=== PATIENT | male | born 1945 | race Hispanic/Latino ===

== ENCOUNTER 2019-02-16 15:58 | Emergency (ER) | payer MEDICARE, MEDICAID ==
[2019-02-16 15:58] VITALS: BMI 26.6
[2019-02-16 17:41] LABS: BASO # 0.02 K/mm3 (0.0-2.0); BASO % 0.2 % (0.0-3.0); EOS # 0.3 (0.0-0.7); EOS % 3.1 % (1.5-5.0); HEMOGLOBIN 13.2 g/dL (14.0-18.0); LYMPH # 4.4 (1.2-3.4); LYMPH % 54.5 % (22.0-35.0); MEAN CELL VOLUME 91.8 fl (80.0-105.0); MEAN CORPUSCULAR HEMOGLOBIN 30.8 pg (25.0-35.0); MEAN CORPUSCULAR HGB CONC 33.5 g/dl (31.0-37.0); MONO % 12.1 % (1.0-6.0); RBC 4.29 10^6/uL (3.5-6.1); RED CELL DISTRIBUTION WIDTH 13.5 % (11.5-14.5)
--- NOTE | 2019-02-16 17:55 | ED PDOC ---
Arrival/HPI - General Chief Complaint: Psychiatric Evaluation Time Seen by Provider: 02/16/19 16:04 - History of Present Illness Narrative History of Present Illness (Text): 02/16/19 17:51 73 m with hx intellectual disability, parkinson's syndrome presents from custodial for evaluation of usual aggressive behavior. Patient was reported to be physically combative to other residents. Patient is unable to provide any reliable history. more detailed hx provided by dr. lin Past Medical History - Infectious Disease Hx of Infectious Diseases: None - Cardiac Other/Comment: unspecified intlectual disabilities - Pulmonary Hx Asthma: Yes - Neurological Hx Dementia: Yes Hx Parkinson's Disease: Yes Hx Seizures: Yes - HEENT Hx Glaucoma: Yes (unspecified glaucoma) - Hematological/Oncological Hx Blood Disorders: Yes Hx Hepatitis B: Yes - Integumentary Hx Dermatological Disorder: Yes Hx Eczema: Yes - Genitourinary/Gynecological Hx Urinary Tract Infection: Yes - Psychiatric Hx Anxiety: Yes Hx Substance Use: No - Anesthesia Hx Anesthesia: No Family/Social History Family/Social History: Unknown Family HX Smoking Status: Never Smoked Hx Alcohol Use: No Hx Substance Use: No Allergies/Home Meds Allergies/Adverse Reactions: Allergies poison karthik extract Allergy (Verified 08/07/18 17:46) Home Medications: Home Meds Medication Instructions Recorded Confirmed ARIPiprazole [Abilify] 2 mg PO DAILY 08/07/18 08/07/18 Aspirin [Aspirin EC] 325 mg PO DAILY 08/07/18 08/07/18 Carbidopa/Levodopa 1 each PO TID 08/07/18 08/07/18 [Carbidopa-Levodopa 25-100 Tab] Clonazepam 0.5 mg PO BID 08/07/18 08/07/18 Divalproex Sodium [Divalproex 500 mg PO DAILY 08/07/18 08/07/18 Sodium ER] Folic Acid 0.4 mg PO DAILY 08/07/18 08/07/18 Lovastatin 20 mg PO DAILY 08/07/18 08/07/18 Multivitamin [Multivitamins] 1 each PO DAILY 08/07/18 08/07/18 Topiramate 50 mg PO DAILY 08/07/18 08/07/18 Review of Systems - Review of Systems Systems not reviewed;Unavailable: Other (unable to fully review due to intellectual disabilty) Physical Exam - Physical Exam Narrative Physical Exam (Text): 02/16/19 17:55 Gen: VS reviewed, alert, well developed, well nourished, nontoxic, mild dist ress Eye: EOMI, PERRL Neck: no JVD, supple, no adenopathy CV: regular rate, regular rhythm, no rubs,no murmur, S1, S2 Pulm: no distress, clear to auscultation, no wheeze, no rhonchi, breath sounds e qual, no rales Abd: soft, nontender, no guarding, no rebound, no rigidity Ext: no edema Skin: good color, no rash, no cyanosis Neuro: oriented x3, CN2-12 intact grossly, motor intact, sensation intact 02/16/19 17:56 02/16/19 18:04 Vital Signs Temp Pulse Resp BP Pulse Ox 02/16/19 16:08 97.5 F L 86 18 143/96 H 98 Medical Decision Making ED Course and Treatment: 02/16/19 17:54 patient seen for aggressive behavior while at custodial. will workup for infectious process. patient is calm thus far during his stay in the ED. - RAD Interpretation Radiology Orders: 02/16/19 17:09 CHEST ONE VIEW [RAD] Stat Disposition/Present on Arrival - Present on Arrival Any Indicators Present on Arrival: No History of DVT/PE: No History of Uncontrolled Diabetes: No Urinary Catheter: No History of Decub. Ulcer: No History Surgical Site Infection Following: None - Disposition Have Diagnosis and Disposition been Completed?: Yes Diagnosis: Aggressive behavior Disposition Time: 18:04 Forms: [employer] (Thai)
[2019-02-16 17:59] LABS: ACETAMINOPHEN < 10.0 ug/ml (10.0-20.0); SALICYLATE < 1 mg/dL (2.0-20.0)
[2019-02-16 18:00] LABS: ALB/GLOB RATIO 1.1 (1.1-1.8); ALBUMIN 3.9 g/dL (3.0-4.8); ALT/SGPT < 6 U/L (7-56); AST/SGOT 29 U/L (17-59); BLOOD UREA NITROGEN 21 mg/dL (7-21); CALCIUM 9.4 mg/dL (8.4-10.5); GFR NON-AFRICAN AMERICAN > 60
[2019-02-16 18:15] LABS: URINE BILIRUBIN NEGATIVE (NEGATIVE); URINE BLOOD NEGATIVE (NEGATIVE); URINE GLUCOSE (UA) NEGATIVE (NEGATIVE); URINE LEUKOCYTE ESTERASE NEGATIVE Leu/uL (NEGATIVE); URINE PROTEIN NEGATIVE mg/dL (<30 mg/dL); URINE UROBILINOGEN 0.2 E.U./dL (<1 E.U./dL)
[2019-02-16 18:17] LABS: URINE APPEARANCE CLEAR (CLEAR); URINE COLOR YELLOW (YELLOW)
--- NOTE | 2019-02-16 18:42 | RAD ---
Date of service: 02/16/2019 PROCEDURE: CHEST RADIOGRAPH, 1 VIEW HISTORY: medical screening COMPARISON: 01/10/2014. FINDINGS: LUNGS: Clear. PLEURA: No pneumothorax or pleural fluid seen. CARDIOVASCULAR: No aortic atherosclerotic calcification present. Normal. OSSEOUS STRUCTURES: No significant abnormalities. VISUALIZED UPPER ABDOMEN: Normal. OTHER FINDINGS: None. IMPRESSION: No active disease.No significant interval change compared to the prior examination(s).
[2019-02-16 18:50] LABS: BARBITURATES, UR NEGATIVE (NEGATIVE); BENZODIAZEPINES, UR NEGATIVE (NEGATIVE); OPIATES, UR NEGATIVE (NEGATIVE); PHENCYCLIDINE, UR NEGATIVE (NEGATIVE)
--- NOTE | 2019-02-16 20:47 | CARD ---
APPROVED REPORT Date of service: 02/16/2019 EKG Measurement Heart [id number] <Conclusion> Sinus rhythm with premature atrial complexes RSR' or QR pattern in V1 suggests right ventricular conduction delay Borderline ECG
--- NOTE | 2019-02-16 21:58 | ED PDOC ---
Physical Exam Vital Signs Temp Pulse Resp BP Pulse Ox 02/16/19 20:06 97.6 F 88 15 132/90 99 02/16/19 18:11 89 17 155/98 H 100 02/16/19 16:08 97.5 F L 86 18 143/96 H 98 Medical Decision Making ED Course and Treatment: 02/16/19 20:30 Case endorsed to me by Dr. Banks, pending transfer for psychiatric admission. 02/17/19 0700 awaiting poa in am - Lab Interpretations Lab Results: Total Bilirubin 0.3 mg/dL (0.2-1.3) 02/16/19 17:00 AST 29 U/L (17-59) 02/16/19 17:00 ALT < 6 U/L (7-56) L 02/16/19 17:00 Alkaline Phosphatase 66 U/L (38-126) 02/16/19 17:00 Total Protein 7.5 g/dL (5.8-8.3) 02/16/19 17:00 Albumin 3.9 g/dL (3.0-4.8) 02/16/19 17:00 Globulin 3.5 gm/dL 02/16/19 17:00 Albumin/Globulin Ratio 1.1 (1.1-1.8) 02/16/19 17:00 Urine Color Yellow (YELLOW) 02/16/19 18:11 Urine Appearance Clear (CLEAR) 02/16/19 18:11 Urine pH 7.0 (4.7-8.0) 02/16/19 18:11 Ur Specific [place] 1.015 (1.005-1.035) 02/16/19 18:11 Urine Protein Negative mg/dL (<30 mg/dL) 02/16/19 18:11 Urine Glucose (UA) Negative mg/dL (NEGATIVE) 02/16/19 18:11 Urine Ketones Negative mg/dL (NEGATIVE) 02/16/19 18:11 Urine Blood Negative (NEGATIVE) 02/16/19 18:11 Urine Nitrate Negative (NEGATIVE) 02/16/19 18:11 Urine Bilirubin Negative (NEGATIVE) 02/16/19 18:11 Urine Urobilinogen 0.2 E.U./dL (<1 E.U./dL) 02/16/19 18:11 Ur Leukocyte Esterase Negative Néstor/uL (NEGATIVE) 02/16/19 18:11 - RAD Interpretation Radiology Orders: 02/16/19 17:09 CHEST ONE VIEW [RAD] Stat 02/16/19 18:46 HEAD W/O CONTRAST [CT] Stat Disposition/Present on Arrival - Present on Arrival Any Indicators Present on Arrival: No History of DVT/PE: No History of Uncontrolled Diabetes: No Urinary Catheter: No History of Decub. Ulcer: No History Surgical Site Infection Following: None - Disposition Have Diagnosis and Disposition been Completed?: Yes Diagnosis: Aggressive behavior Disposition: Transfer [facility] Disposition Time: 07:00 Patient Problems: Current Active Problems Problem Status Onset Aggressive behavior Acute Condition: FAIR Forms: [employer] (Indonesian)
--- NOTE | 2019-02-17 07:26 | ED PDOC ---
Physical Exam Vital Signs Temp Pulse Resp BP Pulse Ox 02/17/19 02:38 94 H 16 144/71 97 02/17/19 00:00 96 H 16 138/72 96 02/16/19 22:19 92 H 16 147/65 97 02/16/19 20:06 97.6 F 88 15 132/90 99 02/16/19 18:11 89 17 155/98 H 100 02/16/19 16:08 97.5 F L 86 18 143/96 H 98 Medical Decision Making ED Course and Treatment: 02/17/19 07:25 Case endorsed to me by Dr. Louise 02/17/19 11:40 Patient is medically cleared for psychiatric evaluation and further treatment. - Lab Interpretations Lab Results: Total Bilirubin 0.3 mg/dL (0.2-1.3) 02/16/19 17:00 AST 29 U/L (17-59) 02/16/19 17:00 ALT < 6 U/L (7-56) L 02/16/19 17:00 Alkaline Phosphatase 66 U/L (38-126) 02/16/19 17:00 Total Protein 7.5 g/dL (5.8-8.3) 02/16/19 17:00 Albumin 3.9 g/dL (3.0-4.8) 02/16/19 17:00 Globulin 3.5 gm/dL 02/16/19 17:00 Albumin/Globulin Ratio 1.1 (1.1-1.8) 02/16/19 17:00 Urine Color Yellow (YELLOW) 02/16/19 18:11 Urine Appearance Clear (CLEAR) 02/16/19 18:11 Urine pH 7.0 (4.7-8.0) 02/16/19 18:11 Ur Specific [place] 1.015 (1.005-1.035) 02/16/19 18:11 Urine Protein Negative mg/dL (<30 mg/dL) 02/16/19 18:11 Urine Glucose (UA) Negative mg/dL (NEGATIVE) 02/16/19 18:11 Urine Ketones Negative mg/dL (NEGATIVE) 02/16/19 18:11 Urine Blood Negative (NEGATIVE) 02/16/19 18:11 Urine Nitrate Negative (NEGATIVE) 02/16/19 18:11 Urine Bilirubin Negative (NEGATIVE) 02/16/19 18:11 Urine Urobilinogen 0.2 E.U./dL (<1 E.U./dL) 02/16/19 18:11 Ur Leukocyte Esterase Negative Néstor/uL (NEGATIVE) 02/16/19 18:11 - RAD Interpretation Radiology Orders: 02/16/19 17:09 CHEST ONE VIEW [RAD] Stat 02/16/19 18:46 HEAD W/O CONTRAST [CT] Stat - Scribe Statement The provider has reviewed the documentation as recorded by the Alphonso Lucas All medical record entries made by the Alphonso were at my direction and personally dictated by me. I have reviewed the chart and agree that the record accurately reflects my personal performance of the history, physical exam, medical decision making, and the department course for this patient. I have also personally directed, reviewed, and agree with the discharge instructions and disposition. Disposition/Present on Arrival - Present on Arrival Any Indicators Present on Arrival: No History of DVT/PE: No History of Uncontrolled Diabetes: No Urinary Catheter: No History of Decub. Ulcer: No History Surgical Site Infection Following: None - Disposition Have Diagnosis and Disposition been Completed?: Yes Diagnosis: Aggressive behavior Disposition: Transfer [facility] Disposition Time: 13:00 Condition: FAIR Forms: [employer] (Gabonese)
[2019-02-17 07:56] VITALS: RESP 18
--- NOTE | 2019-02-17 09:33 | CT ---
Date of service: 02/16/2019 PROCEDURE: CT HEAD WITHOUT CONTRAST. HISTORY: altered mentation COMPARISON: None available. TECHNIQUE: Axial computed tomography images were obtained through the head/brain without intravenous contrast. Radiation dose: Total exam DLP = 991.42 mGy-cm. This CT exam was performed using one or more of the following dose reduction techniques: Automated exposure control, adjustment of the mA and/or kV according to patient size, and/or use of iterative reconstruction technique. FINDINGS: HEMORRHAGE: No intracranial hemorrhage. BRAIN: No mass effect or edema. Mild to moderate atrophy VENTRICLES: Unremarkable. No hydrocephalus. CALVARIUM: Unremarkable. PARANASAL SINUSES: Unremarkable as visualized. No significant inflammatory changes. MASTOID AIR CELLS: Unremarkable as visualized. No inflammatory changes. OTHER FINDINGS: The report concurs with the preliminary [facility] report IMPRESSION: No acute findings
[2019-02-17 13:02] VITALS: O2SAT 98
[2019-02-17 15:45] VITALS: BP 151/79; PULSE 81; TEMP 98.2
== END 2019-02-17 16:02 | disposition short-term general hospital (02) ==
LOC: ED 15:58
DX: F91.8 Other conduct disorders (principal); G20 Parkinson's disease; F02.80 Dementia in other diseases classified elsewhere, unspecified severity, without behavioral disturbance, psychotic disturbance, mood disturbance, and anxiety; J45.909 Unspecified asthma, uncomplicated; F41.9 Anxiety disorder, unspecified
CPT/HCPCS: 70450; 71045; 80053; 81003; 85025; 90791; 93005; 99285; G0480